=== PATIENT | female | born 2000 | race Caucasian/White ===

== ENCOUNTER 2019-10-14 14:38 | Outpatient (CLI) | payer SELFPAY ==
[2019-10-16 12:50] LABS: Quantiferon Mitogen 6.84 IU/mL; Quantiferon Nil 0.01 IU/mL; Quantiferon Plus TB1 0.01 IU/mL; Quantiferon Plus TB2 0.01 IU/mL; Quantiferon TB Gold NEGATIVE (NEGATIVE)
== END 2019-10-14 14:39 | disposition home or self-care (01) ==
LOC: LAB 14:45
PROVIDERS: Family Provider Nurse Practitioner; Visit Provider Nurse Practitioner
DX: Z01.89 Encounter for other specified special examinations (principal)
CPT/HCPCS: 86480

== ENCOUNTER 2020-03-31 17:03 | Emergency (ER) | payer OTHER, SELFPAY ==
[2020-03-31 17:19] VITALS: BP 122/78; PULSE 86; RESP 16; TEMP 36.6; O2SAT 98; BMI 29.5
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
[2020-03-31] MEDS: acetaminophen 500 mg Tablet 1000 MG PO (18:38)
[2020-03-31 19:34] VITALS: RESP 16; TEMP 36.6; O2SAT 98
== END 2020-03-31 19:34 | disposition home or self-care (01) ==
PROVIDERS: Emergency Provider Physician Assistant
DX: M25.511 Pain in right shoulder (principal); Y04.2XXA Assault by strike against or bumped into by another person, initial encounter; Y92.239 Unspecified place in hospital as the place of occurrence of the external cause; Y99.0 Civilian activity done for income or pay
CPT/HCPCS: 12345; 71045; 73030; 99281; 99283

== ENCOUNTER → 2023-03-01 18:03 | Outpatient (BNVA) | payer SELFPAY | PROVIDERS: Visit Provider Nurse Practitioner | DX: S69.91XA Unspecified injury of right wrist, hand and finger(s), initial encounter (principal); X58.XXXA Exposure to other specified factors, initial encounter | CPT/HCPCS: 73130 ==